=== PATIENT | male | born 1950 | race Caucasian/White ===

== ENCOUNTER 2017-02-12 10:23 | Emergency (ER) | payer OTHER ==
[~2017-02-12] VITALS: Ht 182.9 cm; Wt 132.4 kg
[~2017-02-12 10:23] MED LIST: CYMBALTA60 MG PO; GLIMEPIRIDE2 MG PO; GLUCOPHAGE500 M1 PO; ZESTRIL,PRINIVIL5 MG PO
[2017-02-12] MEDS ORDERED: ULTRAM50 MG PO (11:43)
[2017-02-12] MEDS ORDERED: KEFLEX500 MG PO (11:43)
[2017-02-12 12:13] VITALS: BP 115/62
== END 2017-02-12 12:14 | disposition home or self-care (01) ==
LOC: EME 10:23
PROVIDERS: Physician Assistant
DX: L03.115 Cellulitis of right lower limb (principal); I10 Essential (primary) hypertension; F32.9 Major depressive disorder, single episode, unspecified; E11.40 Type 2 diabetes mellitus with diabetic neuropathy, unspecified; Z79.84 Long term (current) use of oral hypoglycemic drugs
CPT/HCPCS: 85379; 99281; 99283

== ENCOUNTER 2017-10-30 09:30 | Emergency (ER) | payer OTHER ==
[~2017-10-30] VITALS: Ht 182.9 cm; Wt 135.4 kg
[~2017-10-30 09:30] MED LIST changes: +KEFLEX500 MG PO; +ULTRAM50 MG PO
[2017-10-30 12:00] LABS: HEMATOCRIT 35.9 % (38.0-50.0); HEMOGLOBIN 12.6 G/DL (12.5-16.6); MCH 35.6 PG (29.0-34.0); MCHC 35.1 G/DL (30.0-36.0); MCV 101.4 FL (86-99); PLATELET COUNT 67 K/uL (156-360); RBC DIS.WIDTH-CV 15.5 % (11.8-14.6); RED BLOOD COUNT 3.54 M/uL (4.00-5.50); WHITE BLOOD COUNT 5.9 K/uL (4.1-10.2)
[2017-10-30 12:09] LABS: ALBUMIN 3.2 g/dL (3.2-4.8); CHLORIDE 105 mEq/L (99-109); POTASSIUM 3.9 mEq/L (3.7-5.4); SODIUM 138 mEq/L (136-147)
[2017-10-30 12:11] LABS: GLUCOSE 174 mg/dL (70-99)
[2017-10-30 12:15] LABS: ALKALINE PHOSPHATASE 197 IU/L (3-129); CREATININE 0.7 mg/dL (0.6-1.3); GFR ESTIMATE (CALCULATED) > 59 mL/min/ (58.99-99999)
[2017-10-30 12:16] LABS: UREA NITROGEN (BUN) 15 mg/dL (9-23)
[2017-10-30 12:17] LABS: AST (GOT) 66 IU/L (2-34)
[2017-10-30 12:18] LABS: ALT (GPT) 48 IU/L (3-49)
[2017-10-30] MEDS ORDERED: KEFLEX500 MG PO (13:54)
[2017-10-30 14:09] VITALS: BP 122/68
== END 2017-10-30 14:09 | disposition home or self-care (01) ==
LOC: EME 09:30
PROVIDERS: Nurse Practitioner Family
DX: L03.115 Cellulitis of right lower limb (principal); E11.40 Type 2 diabetes mellitus with diabetic neuropathy, unspecified; I10 Essential (primary) hypertension; Z79.84 Long term (current) use of oral hypoglycemic drugs; R22.41 Localized swelling, mass and lump, right lower limb; F32.9 Major depressive disorder, single episode, unspecified; Z88.2 Allergy status to sulfonamides
CPT/HCPCS: 80053; 83605; 85027; 85379; 87040; 93971; 99281; 99284